=== PATIENT | male | born 1955 | race African-American/Black ===

== ENCOUNTER 2017-06-19 18:14 | Emergency (ER) | payer OTHER ==
[2017-06-19] MEDS ORDERED: Dexamethasone 4 mg/ml Vial ONE (19:58)
[2017-06-19] MEDS ORDERED: Dexamethasone 4 MG TAB ONE (20:00)
== END 2017-06-19 20:05 | disposition home or self-care (01) ==
LOC: ERS 18:14
DX: J02.9 Acute pharyngitis, unspecified (principal); F17.210 Nicotine dependence, cigarettes, uncomplicated; Z79.899 Other long term (current) drug therapy
CPT/HCPCS: 87081; 87430; 99283; J1100; J8540

== ENCOUNTER 2017-07-22 13:06 | Inpatient (IN) | payer OTHER ==
[2017-07-22 14:30] LABS: Bilirubin Negative (Negative); Blood, Urine Large (Negative); Glucose, Urine (Dipstick) Negative (Negative); Ketone, Urine Negative (Negative); Nitrite Negative (Negative); Protein, Urine (Dipstick) 100 mg/dL (Neg-Trace); Urobilinogen 0.2 mg/dL (0.2-1.0)
[2017-07-22 14:35] LABS: Bacteria/HPF None Seen HPF (None Seen); Hyaline Casts/LPF 0-3 HYALINE CAST LPF (0-3 Hyaline); RBC/HPF GREATER THAN 50-TNTC HPF (0-3); Squamous Epithelial None Seen HPF (0-3)
[2017-07-22 17:36] LABS: #Basophils 0.1 thou/uL (0.0-0.2); #Eosinphils 0.2 thou/uL (0.0-0.7); #Lymphocytes 2.4 thou/uL (1.20-3.40); #Monocytes 0.7 thou/uL (0.11-0.59); #Neutrophils 4.3 thou/uL (1.40-6.50); %Basophils 0.7 % (0.0-1.0); %Eosinophils 2.8 % (0.0-10.0); %Lymphocytes 31.5 % (21.0-51.0); %Monocytes 8.7 % (0.0-10.0); Hematocrit 43.2 % (42.0-52.0); Red Blood Cell (RBC) Count 4.64 mill/uL (4.70-6.10); White Blood Cell (WBC) Count 7.7 thou/uL (4.8-10.8)
[2017-07-22 17:43] LABS: Prothrombin Time 13.9 SEC (12.0-14.7)
[2017-07-22 17:44] LABS: PTT 32.8 SEC (22.9-36.1)
[2017-07-22 18:01] LABS: Lactic Acid - Sepsis 1.6 mmol/L (0.5-2.2)
[2017-07-22 18:02] LABS: ALT (SGPT) 21 U/L (8-55); AST (SGOT) 29 U/L (5-34); Alkaline Phosphatase 68 U/L (40-150); Anion Gap 14 mmol/L (10-20); BUN (Urea Nitrogen) 37 mg/dL (8.4-25.7); Bilirubin, Total 0.3 mg/dL (0.2-1.2); CK (CPK) 727 U/L (30-200); Calc. Creatinine Clearance 0 mL/min (70-130); Calcium 8.7 mg/dL (7.8-10.44); Carbon Dioxide 21 mmol/L (22-29); Chloride 110 mmol/L (98-107); Estimated GFR-MDRD 12; Globulin 3.7 g/dL (2.4-3.5); Lipase 31 U/L (8-78); Magnesium 2.7 mg/dL (1.6-2.6); Protein, Total 7.5 g/dL (6.0-8.3)
[2017-07-22] MEDS ORDERED: Pantoprazole 40 MG VIAL ONE (19:01)
[2017-07-22] MEDS ORDERED: Ondansetron HCl/PF 4 MG/2 ML Vial ONE (19:01)
[2017-07-22] MEDS ORDERED: Morphine 4 MG/ML VIAL ONE (19:01)
[2017-07-22] MEDS ORDERED: Acetaminophen 650 MG Suppository PR PRN (22:24)
[2017-07-22] MEDS ORDERED: Bisacodyl 5 MG TAB PO PRN (22:24)
[2017-07-22] MEDS ORDERED: Acetaminophen 325 MG TAB PO PRN (22:24)
--- NOTE | 2017-07-22 22:42 | CT ---
CT OF THE ABDOMEN AND PELVIS 07/22/17 PROVIDED CLINICAL HISTORY: Hematuria. FINDINGS: The visualized lung bases are free of significant opacity. There is a 7 mm nonobstructing calculus present at the superior pole of the right kidney. No addition al urinary tract calculi are evident. There is bilateral moderate hydronephrosis. There is bilateral hydroureter to the level of the urinary bladder. The urinary bladder wall appears grossly thickened. This is diffusely. There is a bladder diverticulum arising from the posterior aspect of the urinary b ladder to the left of midline. A Grant catheter is noted within the urinary bladder. Gas within the u rinary bladder is seen. The solid abdominal organs demonstrate an otherwise unremarkable unenhanced CT appearance, suboptimal ly evaluated without IV contrast. There is no bowel dilatation, free fluid or free air apparent. IMPRESSION: 1. Marked thickening of the urinary bladder wall compatible with cystitis. 2. Bilateral hydronephrosis and hydroureter without evidence for obstructing calculus. 3. Nonobstructing 7 mm right renal calculus. POS: SHARON
--- NOTE | 2017-07-22 23:22 | HP ---
PRIMARY CARE PROVIDER: [facility] in [place]. CHIEF COMPLAINT: Blood in the urine. HISTORY OF PRESENT ILLNESS: Mr. Allan is a pleasant 61-year-old gentleman who was seen at [facility] for blood in the urine. He reports that it has been going on for the last 2 weeks, on and off, 6/10 at its worst, sharp, no known aggravating or relieving factors, he vomited once last week. He denies any fevers or chills. He denies any diarrhea. He denies any recent trauma. He denies any chest pain or shortness of breath. He denies any nonster oidal anti-inflammatory agent use. REVIEW OF SYSTEMS: The following complete review of systems was negative, unless otherwise mentioned in the HPI or below: Constitutional: Weight loss or gain, sense of well-being, ability to conduct usual activities, exerc ise tolerance. Skin/Breast: Rash, itching, changes in hair growth or loss, nail changes, breast lumps, tenderness, swelling, nipple discharge. Eyes: Vision, double vision, tearing, blind spots, pain. ENT/Mouth: Headaches (location, time of onset, duration, precipitating factors), vertigo, lightheade dness, injury. Vision, double vision, tearing, blind spots, pain, nose bleeding, colds, obstruction, discharge, dental difficulties, gingival bleeding, dentures, neck stiffness, pain, tenderness, masses in thyroid or other areas. Cardiovascular: Precordial pain, substernal distress, palpitations, syncope, dyspnea on exertion, or thopnea, nocturnal paroxysmal dyspnea, edema, cyanosis, hypertension, heart murmurs, varicosities, ph lebitis, claudication. Respiratory: Pain, shortness of breath, wheezing, stridor, cough, hemoptysis, fever or night sweats. Gastrointestinal: Poor appetite, dysphagia, indigestion, abdominal pain, heartburn, eructation, naus ea, vomiting, hematemesis, jaundice, constipation, or diarrhea, abnormal stools (joão-colored, tarry, bloody, greasy, foul smelling), flatulence, hemorrhoids, recent changes in bowel habits. Genitourinary: Urgency, frequency, dysuria, nocturia, hematuria, polyuria, oliguria, unusual (or major nge in) color of urine, stones, hesitancy, change in size of stream, dribbling, acute retention or in continence, libido, potency. Musculoskeletal: Pain, swelling, redness or heat of muscles or joints, limitation, of motion, muscul ar weakness, atrophy, cramps. Neurologic/Psychiatric: Convulsions, paralyses, tremor, incoordination, paresthesias, difficulties w ith memory of speech, sensory or motor disturbances, or muscular coordination (ataxia, tremor), emoti onal problems, anxiety, depression, previous psychiatric care, unusual perceptions, hallucinations. Allergy/Immunologic: Skin rash, anemia, bleeding tendency, polydipsia, polyuria, intolerance to heat or cold. PAST MEDICAL HISTORY: Significant for dyslipidemia and benign prostatic hypertrophy. PAST SURGICAL HISTORY: None. FAMILY HISTORY: Significant for prostate cancer and colon cancer in his father, prostate cancer in h is brother. ALLERGIES: No known drug allergies. CURRENT MEDICATIONS: Include Flomax 0.4 mg daily. SOCIAL HISTORY: No history of alcohol or recreational drug use. The patient smokes half a pack of c igarettes a day. PHYSICAL EXAMINATION: GENERAL: On examination, Mr. Allan is awake and alert, not in acute distress. VITAL SIGNS: Blood pressure is 169/94, pulse is 60, he is breathing at rate of 16, and saturating 94 % on room air. He is afebrile. EYES: No scleral icterus. No conjunctival pallor. NECK: Supple, nontender, normal range of movement. Trachea is midline. ENT: Moist mucosal membranes, no oropharyngeal erythema or exudates. RESPIRATORY: Accessory muscles of breathing are not active. Chest wall movements are symmetric bila terally. Lungs are clear to auscultation without wheeze, rhonchi or crepitations. CARDIOVASCULAR: S1 and S2 are heard, regular. Peripheral pulses palpable. No carotid bruit, no per icardial rub. ABDOMEN: Soft, nontender, bowel sounds are heard, no hepatomegaly, no splenomegaly. NEUROLOGIC: Cranial nerves II-XII are intact. Deep tendon reflexes are 2+. PSYCHIATRIC: Normal mood and normal affect, the patient is oriented to person, place, and time. MUSCULOSKELETAL: Power is 5/5 in all 4 extremities. Normal range of movement at all major extremity joints. SKIN: No rashes or subcutaneous nodules. NECK: No cervical lymphadenopathy. LABORATORY DATA AND IMAGING: Mr. Allan's labs and investigations were reviewed. He had a CT scan of the abdomen and pelvis, and the emergency room physician reports to me that he has bilateral hydr onephrosis. Laboratory investigation show a normal white count, mild normocytic anemia with hemoglob in of 13.9, normal platelet count, INR 1.1, normal sodium, normal potassium, elevated blood urea nitr ogen of 37, elevated creatinine of 5.86, I do not have baseline creatinine for him, elevated magnesiu m of 2.7, unremarkable liver profile, indeterminate troponin I of 0.030 and elevated creatine kinase of 727. Urinalysis is positive for protein, blood, and leukocyte esterase. ASSESSMENT AND PLAN: Mr. Allan is a pleasant 61-year-old gentleman who was seen at [facility] on 07/22/2017. His problem list includes: 1. Hematuria: The patient's urine currently is light pink in color. He will be admitted to the [facility] for further management. Urology Service will be consulted. 2. Hydronephrosis: He reportedly has hydronephrosis on CT scan. He had Grant catheter placed with flow of a large amount of urine. The hydronephrosis is most likely secondary to blockage at the pros hernandez level. We will consult Urology for further opinion. 3. Acute kidney injury: Most likely postrenal, although prerenal component cannot be ruled out. We will provide intravenous fluids. We will recheck creatinine and electrolytes. 4. Rhabdomyolysis: Mild, although it is unclear whether his CK level is trending down or up. We wi ll recheck CK level. We will provide intravenous fluids. 5. Dyslipidemia: The patient is currently not taking any medications for this. He will need to fol low up with this with his primary care physician. 6. Tobacco abuse: The patient has been counseled regarding tobacco cessation. We will start him on nicotine replacement therapy. 7. Benign prostatic hypertrophy. Continue Flomax. Many thanks for allowing me to participate in your patient's care. Please feel free to contact me wi th any questions or concerns. LEVEL OF RISK: Moderate. LEVEL OF COMPLEXITY: Moderate.
[2017-07-22] MEDS ORDERED: hydrALAZINE 20 MG/ML VIAL SLOW IVP PRN (23:33)
[2017-07-22] MEDS: Sodium Chloride 0.9% 1,000 ML IV SCH (23:45)
[2017-07-23] MEDS: Nicotine 14 MG PATCH TD SCH ×2 (00:01→22:45)
[2017-07-23 00:22] VITALS: BMI 24.0
[2017-07-23 01:35] LABS: Potassium, Urine Less than 10.0 mmol/L; Sodium, Urine 64 mmol/L (Not Available)
[2017-07-23 05:34] LABS: #Eosinphils 0.2 thou/uL (0.0-0.7); #Lymphocytes 1.9 thou/uL (1.20-3.40); #Monocytes 0.5 thou/uL (0.11-0.59); #Neutrophils 3.9 thou/uL (1.40-6.50); %Basophils 0.5 % (0.0-1.0); %Eosinophils 3.2 % (0.0-10.0); %Lymphocytes 29.5 % (21.0-51.0); Mean Platelet Volume 9.1 fL (7.4-10.4); White Blood Cell (WBC) Count 6.6 thou/uL (4.8-10.8)
[2017-07-23 06:00] LABS: Anion Gap 10 mmol/L (10-20); BUN (Urea Nitrogen) 28 mg/dL (8.4-25.7); CK (CPK) 363 U/L (30-200); Calc. Creatinine Clearance 25 mL/min (70-130); Calcium 9.4 mg/dL (7.8-10.44); Carbon Dioxide 24 mmol/L (22-29); Chloride 116 mmol/L (98-107); Estimated GFR-MDRD 20
[2017-07-23] MEDS: Tamsulosin HCl 0.4 MG CAP PO SCH (07:50)
[2017-07-23] MEDS: Sodium Chloride 0.9% 1,000 ML IV SCH (09:40)
--- NOTE | 2017-07-23 16:57 | PDOC.PN ---
- Subjective Encounter Start Date: 07/23/17 Encounter Start Time: 16:55 Subjective: seen and examined feeling ok - Objective Vital Signs & Weight: Vital Signs (12 hours) Temp Pulse Resp BP Pulse Ox 07/23/17 16:00 97.9 F 72 18 165/95 H 95 07/23/17 11:26 146/81 H 07/23/17 09:45 176/103 H 07/23/17 09:39 60 07/23/17 07:52 97.9 F 60 18 07/23/17 07:43 97.9 F 60 18 167/108 H 95 Weight Admit Weight 187 lb 9.6 oz Weight 187 lb 9.6 oz I&O: 07/22/17 07/23/17 07/24/17 06:59 06:59 06:59 Intake Total 4165 Output Total 4700 Balance -535 Result Diagrams: 07/23/17 04:42 07/23/17 04:42 Phys Exam - Physical Examination Constitutional: NAD HEENT: PERRLA, moist MMs, sclera anicteric, TM's clear Neck: no JVD, supple, full ROM Respiratory: no wheezing, no rales, no rhonchi, clear to auscultation bilateral Cardiovascular: RRR, no significant murmur, no rub Gastrointestinal: soft, non-tender, no distention, positive bowel sounds Dx/Plan (1) Hematuria Code(s): R31.9 - HEMATURIA, UNSPECIFIED Status: Acute (2) Obstructive uropathy Code(s): N13.9 - OBSTRUCTIVE AND REFLUX UROPATHY, UNSPECIFIED Status: Acute (3) ADDISON (acute kidney injury) Code(s): N17.9 - ACUTE KIDNEY FAILURE, UNSPECIFIED Status: Acute (4) Dyslipidemia Code(s): E78.5 - HYPERLIPIDEMIA, UNSPECIFIED Status: Acute (5) Hypertension Code(s): I10 - ESSENTIAL (PRIMARY) HYPERTENSION Status: Acute - Plan plan discussed w/ family, [facility] catheter Appreciate Urology input -: Start 08/04 normal saine -: start norvas * .
[2017-07-23] MEDS: Dextrose 5 %-0.45 % NaCl 1,000 ML IV SCH (17:21)
[2017-07-23] MEDS: Ciprofloxacin Lactate/D5W 200 MG in Premix Bag 1 BAG IVPB SCH (18:02)
--- NOTE | 2017-07-23 19:12 | CON ---
DATE OF CONSULTATION: 07/23/2017 CONSULTING PHYSICIAN: Bassam Thomson M.D. CONSULTED PHYSICIAN: Royer Young M.D. REASON FOR CONSULTATION: Hematuria with urinary retention and hydronephrosis. CHIEF COMPLAINT: "I had blood in my urine." HISTORY OF PRESENT ILLNESS: Mr. Allan is a 61-year-old black male who was seen at [facility] to hematuria and significant voiding problems. He reports that he has had blood in his urin e off and on for the past week and it got significant enough that he thought he should come into the emergency room. Additionally, his urinary symptoms have progressively been getting worse. He has trotter d a long history for many years, decreased stream, urgency, frequency, and straining to urinate. He was started on Flomax approximately a year ago by his primary care physician, which he states helped his symptoms somewhat, but unfortunately, his symptoms have continued to deteriorate to the point albert t he is having frequency every hour, straining to urinate, extremely slow stream, hesitancy, intermit tency, and feelings of incomplete emptying. He denies having urinary tract infections and has not trotter d previous urinary retention involving a catheter. He states he has never had gross hematuria previo usly. He denies any previous urologic surgeries. Upon arrival to the emergency room, he had a Grant catheter placed, which released over a liter of urine, this was bloody urine. Additionally, he had a CT scan done, which demonstrated an extremely thickened bladder wall and bilateral hydronephrosis. His creatinine was elevated to 5. I have been consulted and asked to see him for his hydronephrosis , thickened bladder wall, and hematuria. PAST MEDICAL HISTORY: 1. High cholesterol. 2. Benign prostatic hypertrophy. PAST SURGICAL HISTORY: None. CURRENT MEDICATIONS: Flomax 0.4 mg p.o. daily. ALLERGIES: None. FAMILY HISTORY: Significant for prostate cancer and colon cancer in his father and prostate cancer i n his brother. SOCIAL HISTORY: The patient has no history of alcohol or recreational drug use. He smokes half a pa ck of cigarettes a day. REVIEW OF SYSTEMS: A 12-point review of systems is unremarkable other than what was commented on in the HPI. Specifically, he denies fevers or chills, shortness of breath, chest pain, or abdominal rod n. He is complaining of urgency, frequency, mild dysuria as well as hematuria. The remainder of 12- point review of systems was reviewed and otherwise negative. PHYSICAL EXAMINATION: VITAL SIGNS: Temperature 97.9, pulse 72, respirations 18, blood pressure 165/95, saturation 95% on r oom air. GENERAL: No apparent distress, communicative and alert, well-nourished, well-developed. HEENT: Normocephalic, atraumatic. Sclerae are nonicteric. Pupils are symmetric and round. Extraoc ular movements are intact. Trachea is midline. CARDIOVASCULAR: Regular rate and rhythm. Normal S1 and S2. Symmetric pulses. CHEST: No increased work of breathing. Symmetric expansion of the lungs. Clear to auscultation ant eriorly. ABDOMEN: Soft, nontender, nondistended, positive bowel sounds. No organomegaly. No rebound, guardi ng tenderness. GENITOURINARY: Grant catheter in place draining a light red urine. There are some clots present, bu t they appear small. Scrotum is unremarkable, otherwise. RECTAL: Deferred at this time. EXTREMITIES: No clubbing, cyanosis, or edema. MUSCULOSKELETAL: No joint deformities or joint erythema noted. Full range of motion. SKIN: Warm, dry, good turgor, no rashes or lesions. PSYCHIATRIC: Alert and oriented x3, appropriate mood and affect for the situation. LABORATORY EVALUATION: Full set of labs are in the [employer] system, which I have reviewed. Of note, the patient's white count is 6.6 with a hemoglobin of 13.9, platelet count of 206. Coagulation fact ors are normal. Creatinine is currently 3.84, down from 5.86. He has a little bit of hypernatremia, sodium of 146. Troponins are mildly elevated at 0.03. Creatine kinase elevation of 363. Urinalysi s demonstrated red urine, large blood, greater than 50 red cells, 7-10 white cells. Urine culture is negative at 24 hours. IMAGING: CT without contrast of the abdomen and pelvis from 07/22/2017 demonstrates a 7 mm nonobstru cting calculus present in the superior pole of the right kidney. There is bilateral moderate hydrone phrosis down to the bladder which is significantly thickened. There is a bladder diverticulum arisin g from the posterior aspect of the urinary bladder wall left of midline. A Grant catheter is in plac e. No ureteral stones noted. ASSESSMENT AND PLAN: A 61-year-old black male with severe benign prostatic hypertrophy and bladder o utlet obstruction resulting in significant detrusor hypertrophy and urinary retention with resultant hydronephrosis secondary to his bladder outlet obstruction with acute kidney injury likely on chronic kidney disease. He has a nonobstructing stone which is of no significance at the current time. The stone should probably be treated at some point, but it is not urgent at this time. The patient's he maturia is most likely arising from his benign prostatic hypertrophy, although he will ultimately nee d a cystoscopy for evaluation of a possible malignancy or other potential sources of hematuria. For now, I would recommend continuation of his Grant catheter. If he is having clogging of his catheter, he will need to have this catheter size increased to about a 20-22 Mongolian catheter, otherwise as lilliam g as his catheter continues to drain, he should continue his Grant catheterization. I would not krystle mmend his catheter be discontinued. Otherwise, he will probably end up going back into urinary reten tion given the severity of his previous symptoms. The patient will likely need an outpatient cystosc opy and then be set up for a transurethral resection of the prostate which would probably be his best shot of being able to urinate without jeopardizing his renal function. This can all be arranged as an outpatient. I would recommend that once he is medically cleared from his heart and hematuria paulina dpoint that he be discharged with his Grant catheter in place and we will handle the remainder of his treatment on an outpatient basis. SUMMARY OF RECOMMENDATIONS: 1. Continue Grant catheter. 2. If catheter clogs or hematuria worsens, the patient may need upsizing his catheter to a 20-22 Karlo nch catheter. 3. Avoid antiplatelets or anticoagulants. 4. We will handle his treatment ultimately on an outpatient basis.
[2017-07-24] MEDS: Dextrose 5 %-0.45 % NaCl 1,000 ML IV SCH ×3 (02:23→16:56)
[2017-07-24] MEDS: Ciprofloxacin Lactate/D5W 200 MG in Premix Bag 1 BAG IVPB SCH ×2 (05:19→17:36)
[2017-07-24 05:53] LABS: #Basophils 0.1 thou/uL (0.0-0.2); #Eosinphils 0.2 thou/uL (0.0-0.7); #Lymphocytes 2.6 thou/uL (1.20-3.40); #Monocytes 0.3 thou/uL (0.11-0.59); %Basophils 1.3 % (0.0-1.0); %Eosinophils 2.4 % (0.0-10.0); %Lymphocytes 36.1 % (21.0-51.0); %Monocytes 4.8 % (0.0-10.0); Hematocrit 44.9 % (42.0-52.0); Mean Platelet Volume 9.6 fL (7.4-10.4); Red Blood Cell (RBC) Count 4.79 mill/uL (4.70-6.10); White Blood Cell (WBC) Count 7.2 thou/uL (4.8-10.8)
[2017-07-24 06:23] LABS: Anion Gap 14 mmol/L (10-20); BUN (Urea Nitrogen) 18 mg/dL (8.4-25.7); Calc. Creatinine Clearance 44 mL/min (70-130); Calcium 9.4 mg/dL (7.8-10.44); Carbon Dioxide 20 mmol/L (22-29); Chloride 111 mmol/L (98-107); Estimated GFR-MDRD 38
[2017-07-24] MEDS: Tamsulosin HCl 0.4 MG CAP PO SCH (07:45)
[2017-07-24] MEDS: Amlodipine 5 MG TAB PO SCH (07:45)
[2017-07-24] MEDS ORDERED: HYDROcodone/Acetaminophen 5/325 mg Tablet PO PRN ×2 (14:26)
--- NOTE | 2017-07-24 14:29 | PDOC.PN ---
- Subjective Encounter Start Date: 07/24/17 Encounter Start Time: 14:28 Subjective: seen and examined feeling better but c/o back pain - Objective Vital Signs & Weight: Vital Signs (12 hours) Temp Pulse Resp BP BP Pulse Ox 07/24/17 08:00 98 F 65 18 97 07/24/17 07:54 98 F 65 18 165/99 H 97 07/24/17 07:45 60 07/24/17 04:48 97.7 F 60 20 158/90 H 95 Weight Admit Weight 187 lb 9.6 oz Weight 187 lb 9.6 oz I&O: 07/23/17 07/24/17 07/25/17 06:59 06:59 06:59 Intake Total 4160 2080 480 Output Total 4700 5550 Balance -535 -8510 480 Result Diagrams: 07/24/17 05:13 07/24/17 05:13 Phys Exam - Physical Examination Constitutional: NAD HEENT: PERRLA, moist MMs, sclera anicteric, TM's clear Neck: no nodes, no JVD, supple, full ROM Respiratory: no wheezing, no rales, no rhonchi, clear to auscultation bilateral Cardiovascular: RRR, no significant murmur, no rub Gastrointestinal: soft, non-tender, no distention, positive bowel sounds Musculoskeletal: no edema, pulses present Dx/Plan (1) Hematuria Code(s): R31.9 - HEMATURIA, UNSPECIFIED Status: Acute (2) Obstructive uropathy Code(s): N13.9 - OBSTRUCTIVE AND REFLUX UROPATHY, UNSPECIFIED Status: Acute (3) ADDISON (acute kidney injury) Code(s): N17.9 - ACUTE KIDNEY FAILURE, UNSPECIFIED Status: Acute (4) Dyslipidemia Code(s): E78.5 - HYPERLIPIDEMIA, UNSPECIFIED Status: Acute (5) Hypertension Code(s): I10 - ESSENTIAL (PRIMARY) HYPERTENSION Status: Acute - Plan plan discussed w/ family, [facility] catheter, continue antibiotics, social work associate Pain management with iv/po narcotics -: d/c home with [facility] when urine clears * .
[2017-07-24] MEDS ORDERED: Morphine 2 mg/2ml in 0.9% NaCl PF SYRINGE SLOW IVP PRN (14:45)
--- NOTE | 2017-07-24 16:21 | PRG ---
DATE OF SERVICE: 07/24/2017 SUBJECTIVE: The patient states he is feeling okay and he is little tired. Otherwise, no major compl aints. He is not complaining of any catheter related issues. PHYSICAL EXAMINATION: VITAL SIGNS: Temperature 98, pulse 65, respirations 18, blood pressure 165/99, saturation 97% on clifford m air. GENERAL: No apparent distress, somewhat somnolent, but otherwise communicative. CARDIOVASCULAR: Regular rate and rhythm. ABDOMEN: Soft, nontender, nondistended, positive bowel sounds. GENITOURINARY: Grant catheter in place with light translucent red urine without clots significantly improved from yesterday. EXTREMITIES: No significant clubbing, cyanosis or edema. LABORATORY DATA: On laboratory evaluation, the labs are in the [employer] system, which I have reviewe d. Of note, the patient's hemoglobin is 14.8 with white count of 7.2 and creatinine down to 2.17. ASSESSMENT AND PLAN: A 61-year-old black male with benign prostatic hypertrophy and urinary retentio n resulting in bilateral hydronephrosis and acute kidney injury with resolving renal injury and impro ving creatinine. His hematuria is also improving. At this point, I think from a urologic standpoint , he should be able to be discharged when appropriate from a medical standpoint. He does need to be monitored for postobstructive diuresis to ensure that he does not have excessive urine output that he cannot keep up with his fluid intake with. So long as he is cleared from a medical standpoint, I wo uld recommend he would be discharged with his catheter. I would not recommend removing the catheter until he is able to have some kind of definitive outlet procedure such as a transurethral resection o f the prostate. I will plan to see him back in my office for cystoscopy in preparation for discussio n for transurethral resection of the prostate and we will set this follow up on an outpatient basis. Please note that the office number is [phone]. The patient may require this for scheduling an appointment with me after he is discharged. Dr. Bassam Gomez will be covering for me over the holidays, although there is nothing further to be do ne from a urologic standpoint. If there are any further issues, he will be radiation oncology manager should the need a rise.
[2017-07-24] MEDS: Nicotine 14 MG PATCH TD SCH (22:34)
[2017-07-25] MEDS: Dextrose 5 %-0.45 % NaCl 1,000 ML IV SCH ×2 (04:17→09:02)
[2017-07-25 05:15] LABS: #Basophils 0.1 thou/uL (0.0-0.2); #Eosinphils 0.3 thou/uL (0.0-0.7); #Lymphocytes 2.3 thou/uL (1.20-3.40); #Monocytes 0.4 thou/uL (0.11-0.59); #Neutrophils 3.6 thou/uL (1.40-6.50); %Basophils 1.2 % (0.0-1.0); %Eosinophils 3.9 % (0.0-10.0); %Lymphocytes 34.4 % (21.0-51.0); %Monocytes 5.8 % (0.0-10.0); Hematocrit 47.5 % (42.0-52.0); Mean Platelet Volume 8.8 fL (7.4-10.4); Red Blood Cell (RBC) Count 5.09 mill/uL (4.70-6.10); White Blood Cell (WBC) Count 6.6 thou/uL (4.8-10.8)
[2017-07-25 05:31] LABS: Anion Gap 14 mmol/L (10-20); BUN (Urea Nitrogen) 14 mg/dL (8.4-25.7); Calc. Creatinine Clearance 55 mL/min (70-130); Calcium 9.3 mg/dL (7.8-10.44); Carbon Dioxide 18 mmol/L (22-29); Chloride 110 mmol/L (98-107); Estimated GFR-MDRD 49
[2017-07-25] MEDS: Ciprofloxacin Lactate/D5W 200 MG in Premix Bag 1 BAG IVPB SCH (05:51)
[2017-07-25] MEDS: Amlodipine 5 MG TAB PO SCH (09:03)
[2017-07-25] MEDS: Tamsulosin HCl 0.4 MG CAP PO SCH (09:03)
[2017-07-25 15:42] VITALS: BP 143/93; TEMP 97.3
--- NOTE | 2017-07-25 19:17 | DIS ---
For the details of the history and physical and the consultative notes refer to dictations on record. SUMMARY: This is a 61-year-old gentleman who presented here with bloody urine and noted to have collette re urinary obstruction with bilateral hydronephrosis. The patient's obstruction was relieved by the placement of Grant catheter. The patient on presentation was also noted to have severe acute renal f ailure which has also responded to the relief of the obstructive uropathy. The patient was seen on c onsultation during this hospitalization by Dr. Young who is going to follow up with this patient st atus post discharge. At this time of dictation, the patient's creatinine has trended downwards and i s now at 1.75 with remarkable clinical improvement. The patient has maintained sustained clinical im provement and very eager to go home and as per Urology recommendation, the patient is good for discha rge with a plan to follow up with them closely. PHYSICAL EXAMINATION: GENERAL: On examination today, the patient was found not to be in any respiratory distress, does hav e some physical distress in the context of pain in the flanks, otherwise hemodynamically stable. HEENT AND NECK: Unremarkable. Moist oral mucosa. Neck was supple. No conjunctival injection or ic terus. CARDIOVASCULAR: First and second heart sounds were heard. RESPIRATORY: Clear to auscultation. DIGESTIVE SYSTEM: Revealed a benign abdomen. The rest of the system examination unremarkable. The patient to be discharged home today on the following medications: Cipro 500 mg p.o. b.i.d., Norc o q.8 h. p.r.n. for 15 tablets, amlodipine 5 mg p.o. daily, Flomax 0.4 mg p.o. daily. DIAGNOSIS MANAGED DURING THIS HOSPITALIZATION: Include, 1. Acute renal failure in the context of problem #2. 2. Obstructive uropathy. 3. Gross hematuria. 4. Bilateral hydronephrosis. 5. Hypertension. 6. Metabolic acidosis in the context of problems listed above. Total time spent including the [id number] encounter with this patient is 32 minutes.
== END 2017-07-25 15:24 | disposition home or self-care (01) | DRG 726 ==
LOC: ERS 13:06 → T4-B 21:40
PROVIDERS: ADMIT Internal Medicine; ATTEND Internal Medicine
DX: N40.1 Benign prostatic hyperplasia with lower urinary tract symptoms (principal); N17.9 Acute kidney failure, unspecified; E87.2 Acidosis; N13.30 Unspecified hydronephrosis; N13.8 Other obstructive and reflux uropathy; M62.82 Rhabdomyolysis; R31.9 Hematuria, unspecified; E78.5 Hyperlipidemia, unspecified; F17.210 Nicotine dependence, cigarettes, uncomplicated; I12.9 Hypertensive chronic kidney disease with stage 1 through stage 4 chronic kidney disease, or unspecified chronic kidney disease; N18.9 Chronic kidney disease, unspecified
CPT/HCPCS: 36415; 74176; 80048; 80053; 81003; 81015; 82274; 82436; 82550; 82553; 82570; 83605; 83690; 83735; 84133; 84300; 84484; 85025; 85610; 85730; 86850; 86900; 86901; 87086; C9113; J0360; J0744; J2270; J2405